=== PATIENT | female | born 1985 | race Hispanic/Latino ===

== ENCOUNTER 2019-01-24 13:11 | Emergency (ER) | payer OTHER, SELFPAY ==
[2019-01-24 13:18] VITALS: BP 145/88; PULSE 96; RESP 20; TEMP 37; O2SAT 98; BMI 38.2
--- NOTE | 2019-01-24 13:20 | ED.BACK ---
HPI - Back Pain/Injury General Chief Complaint: Back Pain/Injury Stated Complaint: LOWER BACK PAIN RT SIDE CAN'T WALK Time Seen by Provider: 01/24/19 13:18 Source: patient Mode of arrival: wheelchair Limitations: no limitations History of Present Illness HPI Narrative: This is a 33-year-old female comes to the emergency department with complaint of low back pain. Patient has had symptoms for several months. She has been seeing a chiropractor regularly but slowly been worsening she did have x-rays about 2 years ago but has not had any since then. She states today she was sitting on the toilet when she coughed and felt sudden worsening of her pain in her back. She states that it has decreased a little bit but is still present. Patient has recently had some a respiratory infection, she has had a little bit of nasal discharge, she has had some productive sputum and frequent cough. This seems to be exacerbating her back pain and is very uncomfortable when she coughs. She states she has felt sort of a discomfort in her chest, she has not felt short of breath. She has had some low-grade fevers of 99 F. she has not had any vomiting. She has been slightly constipated. She has chronic stress incontinence and when she coughs she has urinary incontinence. This is why she was sitting on the toilet today because she was coughing. Patient denies any fecal incontinence. Patient denies any new weakness or numbness in her lower extremities. She denies any saddle anesthesia. Related Data Previous Rx's Medication Instructions Recorded acetaminophen-codeine 1 tab PO Q6H PRN #14 tab 01/24/19 [Tylenol-Codeine #3] meloxicam 7.5 mg PO BID #20 tab 01/24/19 Allergies Allergy/AdvReac Type Severity Reaction Status Date / Time No Known Drug Allergies Allergy Verified 01/24/19 13:37 Review of Systems Review of Systems ROS Unobtainable: All systems reviewed & are unremarkable except as noted in HPI and below Constitutional Denies chills, Denies fever(s) (99F), Denies lethargy and Denies weakness ENT Ears, Nose, Mouth, and Throat: Reports nasal congestion, Denies sinus pressure and Reports sore throat Cardiovascular Reports chest pain, Denies syncope, Denies edema, Denies dyspnea and Denies dyspnea on exertion Respiratory Denies change in phlegm color, Denies chest congestion, Reports cough, Reports excessive phlegm production, Reports pain with cough (in her back), Denies dyspnea, Denies dyspnea on exertion, Denies stridor and Denies wheezing Gastrointestinal Gastrointestinal: Denies abdominal pain, Denies change in bowel habits, Denies fecal incontinence, Denies diarrhea, Denies nausea and Denies vomiting Genitourinary Denies urinary frequency, Denies dysuria, Reports urinary incontinence (chronic stress incontinence) and Denies urinary urgency Musculoskeletal Reports as per HPI, Reports back pain, Reports limited range of motion, Denies muscle weakness, Denies numbness and Denies radiating pain into limb Integumentary/Breasts Denies erythema and Denies rash Neurologic Denies syncope, Denies numbness and Denies weakness Allergic/Immunologic Denies wheezing [facility] Surgical History History of third molar tooth extraction Social History Smoking Status: Never smoker Social History Smoking Status: Never smoker Exam Narrative Exam Narrative: GENERAL: Alert and oriented x three, well-nourished, well-appearing female in moderate distress. HEENT: Head normocephalic, atraumatic, EOMI, pupils reactive, face symmetric, patient has nasal congestion, moist mucous membranes NECK: Supple, full range of motion CARDIOVASCULAR: Regular rate and rhythm without murmurs, rubs or gallops. RESPIRATORY: Breath sounds equal bilaterally, no wheezes rales or rhonchi. No tachypnea, no accessory muscle use. Patient does have a dry cough. ABDOMEN: Soft, nontender. Normoactive bowel sounds all 4 quadrants. No guarding or rebound, rigidity, no mass : No CVA tenderness BACK: No cervical, thoracic or lumbar vertebral point tenderness, patient is slightly tender at the L5 region just to the right. Patient has decreased range of motion. Patient is quite uncomfortable trying to roll over on the bed. She is more comfortable flat on her back or not moving. Patient's gait is not tested. Rectal exam is normal sphincter tone. Muscle strength is 5/5 in lower extremities, DTRs are 2/4 and lower extremities. Dorsalis pedis and tibialis pulses are 2+ and lower extremities. Sensation is intact in the lower extremities. No rashes or skin changes to the lower back. EXTREMITIES: Normal range of motion, no clubbing or edema. Neurovascularly intact NEUROLOGICAL: Cranial nerves II through XII grossly intact. Moving all extremities SKIN: Warm, dry, no petechiae, no rashes or lesions. Initial Vital Signs Initial Vital Signs: Vital Signs Temperature 98.6 F 01/24/19 13:18 Pulse Rate 96 H 01/24/19 13:18 Respiratory Rate 20 01/24/19 13:18 Blood Pressure 145/88 H 01/24/19 13:18 Pulse Oximetry 98 01/24/19 13:18 Course Orders Ordered: ED Orders 01/24/19 13:34 XR lumbar spine 2-3V Stat Discontinued Medications Acetaminophen/Codeine Phosphate (Tylenol #3) 1 tab PO NOW ONE Stop: 01/24/19 13:36 Last Admin: 01/24/19 13:41 Dose: 1 tab Ketorolac Tromethamine (Toradol) 60 mg IM NOW ONE Stop: 01/24/19 13:36 Last Admin: 01/24/19 13:40 Dose: 60 mg Vital Signs - 8 hr 01/24/19 13:18 01/24/19 15:54 Temperature 98.6 F 98.6 F Pulse Rate 96 H 74 Respiratory Rate 20 18 Blood Pressure 145/88 H 113/76 Pulse Oximetry 98 96 MDM - Back Pain/Injury Lab Data Point of Care Testing Test Results Negative Imaging Data Lspine xray: Radiologist's impression: [address] [address] XRay Report Signed Patient: Marce Barron [facility]#: [id number] : 1985Acct:[id number] Age/Sex: 33 / FDate of Service: 01/24/19 Loc: ED Accession Number: [id number] Procedure: XR lumbar spine 2-3V Ordering Provider: Tracy Smith D.O. PROCEDURE: XR LUMBAR SPINE 2-3V INDICATIONS: back pain TECHNIQUE: 3 views of the lumbar spine were acquired. COMPARISON: None. FINDINGS: Bones: Minimal retrolisthesis is seen at L5-S1 level. There is mild disc space narrowing at L5-S1. The disc heights are otherwise well-preserved. 5 nonrib-bearing, lumbar type vertebral bodies are seen. No displaced fractures are seen. No suspicious lytic or blastic lesions are seen. Soft tissues: Overlying bowel gas pattern is normal. No suspicious soft tissue calcifications. IMPRESSION: Focal L5-S1 degenerative change. Dictated by: Shashi Maurer M.D. on 01/24/2019 at 14:27 Approved by: Shashi Maurer M.D. on 01/24/2019 at 14:28 [facility] Narrative Medical decision making narrative: Patient's last x-ray was 2 years ago. With her increase in symptoms plan for repeat imaging. Patient was offered a shot of Toradol which he initially was reluctant to have, she did not want to take any pain medications but when her pain to be improved. She did agree to some Toradol. She did not wish for a muscle relaxant. We did talk about trying some Tylenol with codeine in addition because she does have a cough which is I think exacerbating her symptoms. Her lungs are clear and do suspect she has a little bit of respiratory infection but suspect this is more viral. Patient is feeling much better at this time. She was able to ambulate. We discussed follow-up with primary care, she may need further evaluation, PT or even MRI if she is not having any improvement. Discharge Plan Departure Patient Disposition: Home Clinical Impression: Low back pain Discharge Date/Time: 01/24/19 15:55 Interventions: ED Discharge Assessment Last Done: 01/24/19 15:54 Instructions: DI for Low Back Pain Activity Restrictions/Additional Instructions: Follow-up with your physician in the next 5-7 days for recheck if your not having any improvement in your symptoms. Call Friday for an appointment. I recommend taking at least ibuprofen 800 mg every 8 hours as needed for pain, you can take Tylenol with this medication. You can take Tylenol to a 1000 mg every 8 hours as needed. Take Tylenol # 3, you can take this every 6 hours as needed for cough/pain Return to the emergency department for fevers greater than 100.4 F, worsening pain in your back, new loss of bowel control or new changes to your urinary stress incontinence, new weakness, numbness or difficulty with moving her extremities, saddle anesthesia or numbness of the groin or other new or concerning symptoms. Prescriptions: New acetaminophen-codeine [Tylenol-Codeine #3] 300-30 mg tablet 1 tab PO Q6H PRN (Reason: pain) Qty: 14 RF: 0 meloxicam 7.5 mg tablet 7.5 mg PO BID Qty: 20 RF: 0 Referrals: Jessika Mayen MD [Primary Care Provider] - Stand Alone Forms: Work Release Note
--- NOTE | 2019-01-24 13:34 | DI.RAD.S_ITS ---
PROCEDURE: XR LUMBAR SPINE 2-3V INDICATIONS: back pain TECHNIQUE: 3 views of the lumbar spine were acquired. COMPARISON: None. FINDINGS: Bones: Minimal retrolisthesis is seen at L5-S1 level. There is mild disc space narrowing at L5-S1. The disc heights are otherwise well-preserved. 5 nonrib-bearing, lumbar type vertebral bodies are seen. No displaced fractures are seen. No suspicious lytic or blastic lesions are seen. Soft tissues: Overlying bowel gas pattern is normal. No suspicious soft tissue calcifications. IMPRESSION: Focal L5-S1 degenerative change. Dictated by: Shashi Maurer M.D. on 01/24/2019 at 14:27 Approved by: Shashi Maurer M.D. on 01/24/2019 at 14:28
[2019-01-24] MEDS: KETOROLAC 60 MG/2 ML VIAL IM (13:40)
[2019-01-24] MEDS: CODEINE/ACETAMINOPHEN 30/300 TABLET 1 TAB PO (13:41)
--- NOTE | 2019-01-24 13:44 | ED_ITS ---
HPI - Back Pain/Injury General Chief Complaint: Back Pain/Injury Stated Complaint: LOWER BACK PAIN RT SIDE CAN'T WALK Time Seen by Provider: 01/24/19 13:18 Source: patient Mode of arrival: wheelchair Limitations: no limitations History of Present Illness HPI Narrative: This is a 33-year-old female comes to the emergency department with complaint of low back pain. Patient has had symptoms for several months. She has been seeing a chiropractor regularly but slowly been worsening she did have x-rays about 2 years ago but has not had any since then. She states today she was sitting on the toilet when she coughed and felt sudden worsening of her pain in her back. She states that it has decreased a little bit but is still present. Patient has recently had some a respiratory infection, she has had a little bit of nasal discharge, she has had some productive sputum and frequent cough. This seems to be exacerbating her back pain and is very uncomfortable when she coughs. She states she has felt sort of a discomfort in her chest, she has not felt short of breath. She has had some low-grade fevers of 99 F. she has not had any vomiting. She has been slightly constipated. She has chronic stress incontinence and when she coughs she has urinary incontinence. This is why she was sitting on the toilet today because she was coughing. Patient denies any fecal incontinence. Patient denies any new weakness or numbness in her lower extremities. She denies any saddle anesthesia. Related Data Previous Rx's Medication Instructions Recorded acetaminophen-codeine 1 tab PO Q6H PRN #14 tab 01/24/19 [Tylenol-Codeine #3] meloxicam 7.5 mg PO BID #20 tab 01/24/19 Allergies Allergy/AdvReac Type Severity Reaction Status Date / Time No Known Drug Allergies Allergy Verified 01/24/19 13:37 Review of Systems Review of Systems ROS Unobtainable: All systems reviewed & are unremarkable except as noted in HPI and below Constitutional Denies chills, Denies fever(s) (99F), Denies lethargy and Denies weakness ENT Ears, Nose, Mouth, and Throat: Reports nasal congestion, Denies sinus pressure and Reports sore throat Cardiovascular Reports chest pain, Denies syncope, Denies edema, Denies dyspnea and Denies dyspnea on exertion Respiratory Denies change in phlegm color, Denies chest congestion, Reports cough, Reports excessive phlegm production, Reports pain with cough (in her back), Denies dyspnea, Denies dyspnea on exertion, Denies stridor and Denies wheezing Gastrointestinal Gastrointestinal: Denies abdominal pain, Denies change in bowel habits, Denies fecal incontinence, Denies diarrhea, Denies nausea and Denies vomiting Genitourinary Denies urinary frequency, Denies dysuria, Reports urinary incontinence (chronic stress incontinence) and Denies urinary urgency Musculoskeletal Reports as per HPI, Reports back pain, Reports limited range of motion, Denies muscle weakness, Denies numbness and Denies radiating pain into limb Integumentary/Breasts Denies erythema and Denies rash Neurologic Denies syncope, Denies numbness and Denies weakness Allergic/Immunologic Denies wheezing [facility] Surgical History History of third molar tooth extraction Social History Smoking Status: Never smoker Social History Smoking Status: Never smoker Exam Narrative Exam Narrative: GENERAL: Alert and oriented x three, well-nourished, well- appearing female in moderate distress. HEENT: Head normocephalic, atraumatic, EOMI, pupils reactive, face symmetric, patient has nasal congestion, moist mucous membranes NECK: Supple, full range of motion CARDIOVASCULAR: Regular rate and rhythm without murmurs, rubs or gallops. RESPIRATORY: Breath sounds equal bilaterally, no wheezes rales or rhonchi. No tachypnea, no accessory muscle use. Patient does have a dry cough. ABDOMEN: Soft, nontender. Normoactive bowel sounds all 4 quadrants. No guarding or rebound, rigidity, no mass : No CVA tenderness BACK: No cervical, thoracic or lumbar vertebral point tenderness, patient is slightly tender at the L5 region just to the right. Patient has decreased range of motion. Patient is quite uncomfortable trying to roll over on the bed. She is more comfortable flat on her back or not moving. Patient's gait is not tested. Rectal exam is normal sphincter tone. Muscle strength is 5/5 in lower extremities, DTRs are 2/4 and lower extremities. Dorsalis pedis and tibialis pulses are 2+ and lower extremities. Sensation is intact in the lower extremities. No rashes or skin changes to the lower back. EXTREMITIES: Normal range of motion, no clubbing or edema. Neurovascularly intact NEUROLOGICAL: Cranial nerves II through XII grossly intact. Moving all extremities SKIN: Warm, dry, no petechiae, no rashes or lesions. Initial Vital Signs Initial Vital Signs: Vital Signs Temperature 98.6 F 01/24/19 13:18 Pulse Rate 96 H 01/24/19 13:18 Respiratory Rate 20 01/24/19 13:18 Blood Pressure 145/88 H 01/24/19 13:18 Pulse Oximetry 98 01/24/19 13:18 Course Orders Ordered: ED Orders 01/24/19 13:34 XR lumbar spine 2-3V Stat Discontinued Medications Acetaminophen/Codeine Phosphate (Tylenol #3) 1 tab PO NOW ONE Stop: 01/24/19 13:36 Last Admin: 01/24/19 13:41 Dose: 1 tab Ketorolac Tromethamine (Toradol) 60 mg IM NOW ONE Stop: 01/24/19 13:36 Last Admin: 01/24/19 13:40 Dose: 60 mg Vital Signs - 8 hr 01/24/19 13:18 01/24/19 15:54 Temperature 98.6 F 98.6 F Pulse Rate 96 H 74 Respiratory Rate 20 18 Blood Pressure 145/88 H 113/76 Pulse Oximetry 98 96 MDM - Back Pain/Injury Lab Data Point of Care Testing Test Results Negative Imaging Data Lspine xray: Radiologist's impression: [address] [address] XRay Report Signed Patient: Marce Barron [facility]#: [id number] : 1985Acct:[id number] Age/Sex: 33 / FDate of Service: 01/24/19 Loc: ED Accession Number: [id number] Procedure: XR lumbar spine 2-3V Ordering Provider: Tracy Smith D.O. PROCEDURE: XR LUMBAR SPINE 2-3V INDICATIONS: back pain TECHNIQUE: 3 views of the lumbar spine were acquired. COMPARISON: None. FINDINGS: Bones: Minimal retrolisthesis is seen at L5-S1 level. There is mild disc space narrowing at L5-S1. The disc heights are otherwise well-preserved. 5 nonrib-bearing, lumbar type vertebral bodies are seen. No displaced fractures are seen. No suspicious lytic or blastic lesions are seen. Soft tissues: Overlying bowel gas pattern is normal. No suspicious soft tissue calcifications. IMPRESSION: Focal L5-S1 degenerative change. Dictated by: Shashi Maurer M.D. on 01/24/2019 at 14:27 Approved by: Shashi Maurer M.D. on 01/24/2019 at 14:[address] [facility] Narrative Medical decision making narrative: Patient's last x-ray was 2 years ago. With her increase in symptoms plan for repeat imaging. Patient was offered a shot of Toradol which he initially was reluctant to have, she did not want to take any pain medications but when her pain to be improved. She did agree to some Toradol. She did not wish for a muscle relaxant. We did talk about trying some Tylenol with codeine in addition because she does have a cough which is I think exacerbating her symptoms. Her lungs are clear and do suspect she has a little bit of respiratory infection but suspect this is more viral. Patient is feeling much better at this time. She was able to ambulate. We discussed follow-up with primary care, she may need further evaluation, PT or even MRI if she is not having any improvement. Discharge Plan Departure Patient Disposition: Home Clinical Impression: Low back pain Discharge Date/Time: 01/24/19 15:55 Interventions: ED Discharge Assessment Last Done: 01/24/19 15:54 Instructions: DI for Low Back Pain Activity Restrictions/Additional Instructions: Follow-up with your physician in the next 5-7 days for recheck if your not having any improvement in your symptoms. Call Friday for an appointment. I recommend taking at least ibuprofen 800 mg every 8 hours as needed for pain, you can take Tylenol with this medication. You can take Tylenol to a 1000 mg every 8 hours as needed. Take Tylenol # 3, you can take this every 6 hours as needed for cough/pain Return to the emergency department for fevers greater than 100.4 F, worsening pain in your back, new loss of bowel control or new changes to your urinary stress incontinence, new weakness, numbness or difficulty with moving her extremities, saddle anesthesia or numbness of the groin or other new or concerning symptoms. Prescriptions: New acetaminophen-codeine [Tylenol-Codeine #3] 300-30 mg tablet 1 tab PO Q6H PRN (Reason: pain) Qty: 14 RF: 0 meloxicam 7.5 mg tablet 7.5 mg PO BID Qty: 20 RF: 0 Referrals: Jessika Mayen MD [Primary Care Provider] - Stand Alone Forms: Work Release Note
[2019-01-24 15:54] VITALS: BP 113/76; PULSE 74; RESP 18; TEMP 37; O2SAT 96
== END 2019-01-24 15:55 | disposition home or self-care (01) ==
PROVIDERS: Emergency Provider Emergency Medicine; Family Provider Obstetrics & Gynecology
DX: M54.5 Low back pain (principal)
CPT/HCPCS: 72100; 81025; 96372; 99282; 99283; J1885